=== PATIENT | female | born 1995 | race Two or more races ===

== ENCOUNTER 2022-11-20 06:03 | Emergency (ER) | payer OTHER ==
[~2022-11-20] VITALS: Ht 157.5 cm; Wt 54.4 kg
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
--- NOTE | 2022-11-20 06:25 | NUR ---
DR LOU AT BEDSIDE
[2022-11-20] MEDS ORDERED: HYDROCODONE/APAP 5/325MG TABLET ONE (06:32)
[2022-11-20] MEDS: HYDROCODONE/APAP 5/325MG TABLET PO ONE (06:36)
[2022-11-20] MEDS ORDERED: OXYC-128 PO (07:09)
[2022-11-20] MEDS ORDERED: oxyCODONE/APAP (5/325 MG) 1 UDTAB TABLET ONE (07:15)
[2022-11-20] MEDS: oxyCODONE/APAP (5/325 MG) 1 UDTAB TABLET PO ONE (07:18)
--- NOTE | 2022-11-20 07:21 | NUR ---
Patient discharged to home in stable condition. Written and verbal after care instructions given. Patient verbalizes understanding of instruction.
[2022-11-20 07:23] VITALS: BP 110/77
== END 2022-11-20 07:25 | disposition home or self-care (01) ==
LOC: ER 06:07
DX: T23.152A Burn of first degree of left palm, initial encounter (principal); T31.0 Burns involving less than 10% of body surface; X19.XXXA Contact with other heat and hot substances, initial encounter; Y93.G3 Activity, cooking and baking; Y92.89 Other specified places as the place of occurrence of the external cause; Y99.8 Other external cause status